=== PATIENT | male | born 1985 | race Caucasian/White ===

== ENCOUNTER 2019-07-15 13:00 | Emergency (ER) | payer MEDICARE ==
[~2019-07-15] VITALS: Ht 167.6 cm; Wt 104.3 kg
--- NOTE | 2019-07-15 13:40 | NUR ---
Dr Carrillo at the bedside for MSE.
--- NOTE | 2019-07-15 13:43 | NUR ---
Patient discharged to home in stable conditon. Written and verbal after care instructions given. Patient verbalizes understanding of instructions.
[2019-07-15 13:44] VITALS: BP 126/81
== END 2019-07-15 13:44 | disposition home or self-care (01) ==
LOC: ER 13:00
DX: J22 Unspecified acute lower respiratory infection (principal); R05 Cough
CPT/HCPCS: A4663